=== PATIENT | male | born 1955 | race Asian ===

== ENCOUNTER 2018-05-15 13:48 | Inpatient (IN) | payer OTHER ==
[~2018-05-15] VITALS: Ht 170.2 cm; Wt 78.5 kg
[2018-05-15] MEDS ORDERED: ASPIRIN 81 MG CHEWABLE TABLET PO ONE (15:15)
[2018-05-15 15:44] LABS: BASOPHILS % (AUTO) 0.9 % (0.0-2.0); EOSINOPHILS % (AUTO) 1.2 % (1.0-6.0); HEMATOCRIT 47.5 % (41-53); HEMOGLOBIN 15.6 g/dL (13.5-17.5); LYMPHOCYTES # (AUTO) 0.7 K/uL (1.0-4.8); LYMPHOCYTES % (AUTO) 9.7 % (22.0-44.0); MEAN CORPUSCULAR HGB CONC 32.9 G/dL (31.0-37.0); MEAN CORPUSCULAR VOLUME 88 fL (80-100); MONOCYTES # (AUTO) 0.3 K/uL (0.1-1.0); MONOCYTES % (AUTO) 4.9 % (2.0-9.0); NEUTROPHILS # (AUTO) 5.8 K/uL (1.8-7.7); NEUTROPHILS % (AUTO) 83.3 % (40.0-70.0); PLATELET COUNT (AUTO) 216 K/uL (150-450); RED BLOOD CELL COUNT(AUTO) 5.39 MIL/uL (4.50-5.90); RED CELL DISTRIBUTION WIDTH 13.7 % (11.5-14.5)
[2018-05-15 16:04] LABS: ANION GAP 12 mmol/L (8-16); CALCIUM, TOTAL 8.3 mg/dL (8.8-10.5); CARBON DIOXIDE 19 mmol/L (22-29); CHLORIDE 106 mmol/L (98-107); CREATININE 0.99 mg/dL (0.60-1.30); GLOMERULAR FILTR. RATE CALC > 60 mL/min (>60); GLUCOSE,RANDOM 126 mg/dL (70-110); POTASSIUM 4.3 mmol/L (3.5-5.1); SODIUM SERUM 137 mmol/L (136-145); UREA NITROGEN, BLOOD 22 mg/dL (7-18)
[2018-05-15 16:30] LABS: ALANINE AMINOTRANSFERASE 44 U/L (12-78); ALBUMIN 3.2 g/dL (3.4-5.0); ALKALINE PHOSPHATASE 100 U/L (46-116); ASPARTATE AMINOTRANSFERASE 41 U/L (15-37); CREATINE KINASE, TOTAL ONLY 122 U/L (39-308)
[2018-05-15] MEDS ORDERED: NITROGLYCERIN 2% (1 GM=INCH) PACKET TP ONE (17:30)
[2018-05-15] MEDS ORDERED: HEPARIN SODIUM 25000 UNITS/D5W 250 ML IV PRN (17:53)
[2018-05-15 17:59] LABS: B-TYPE NATRIURETIC PEPTIDE 2520 pg/mL (0-100)
[2018-05-15] MEDS ORDERED: 0.9% SODIUM CHLORIDE 10 ML SYRINGE IVP PRN (18:00)
[2018-05-15] MEDS ORDERED: HEPARIN SODIUM,PORCINE 5,000 UNITS/ML VIAL IVP ONE ×2 (18:00→18:15)
[2018-05-15] MEDS ORDERED: HEPARIN SODIUM,PORCINE 5,000 UNITS/ML VIAL IVP PRN ×2 (18:00)
[2018-05-15] MEDS ORDERED: ONDANSETRON HCL 4 MG/2 ML VIAL IVP PRN (18:00)
[2018-05-15] MEDS ORDERED: ACETAMINOPHEN 325 MG TABLET PO PRN (18:00)
[2018-05-15 18:25] LABS: INR 1.2 (0.9-1.1); PROTHROMBIN TIME 12.8 SEC (9.4-11.6)
[2018-05-15 19:08] VITALS: BP 132/92
[2018-05-15 19:54] VITALS: BP 141/97
[2018-05-15] MEDS: FUROSEMIDE 20 MG/2 ML VIAL IVP SCH (21:18)
[2018-05-15 23:21] LABS: APPEARANCE,URINE CLEAR (CLEAR); BILIRUBIN,URINE NEGATIVE (NEGATIVE); GLUCOSE, URINE (UA) 100 mg/dL (NEGATIVE); KETONES,URINE NEGATIVE (NEGATIVE); LEUKOCYTE ESTERASE ,URINE NEGATIVE (NEGATIVE); NITRATE,URINE NEGATIVE (NEGATIVE); OCCULT BLOOD,URINE NEGATIVE (NEGATIVE); PH,URINE 5.5 (5.0-8.0); PROTEIN,URINE NEGATIVE (NEGATIVE)
[2018-05-15 23:26] LABS: AMPHET/METH SCREEN,URINE POSITIVE (NEGATIVE); BARBITURATE SCREEN, URINE NEGATIVE (NEGATIVE); BENZODIAZEPINES SCREEN,URINE NEGATIVE (NEGATIVE); CANNABINOID SCREEN,URINE NEGATIVE (NEGATIVE); COCAINE SCREEN,URINE NEGATIVE (NEGATIVE); METHADONE SCREEN, URINE NEGATIVE (NEGATIVE); OPIATE SCREEN,URINE NEGATIVE (NEGATIVE); PHENCYCLIDINE SCREEN,URINE NEGATIVE (NEGATIVE)
[2018-05-15 23:31] LABS: RBC,URINE None Seen /HPF (0-2); WBC,URINE 0-2 /HPF (0-5)
[2018-05-15 23:32] LABS: BACTERIA,URINE None Seen /HPF (None Seen); SQUAMOUS EPITHELIAL CELL,UR Rare /LPF (None Seen)
[2018-05-16] VITALS (8 sets, daily range): BP systolic 122–147; BP diastolic 70–98
[2018-05-16 03:22] LABS: BASOPHILS % (AUTO) 1.2 % (0.0-2.0); EOSINOPHILS % (AUTO) 3.8 % (1.0-6.0); HEMATOCRIT 48.4 % (41-53); HEMOGLOBIN 16.1 g/dL (13.5-17.5); LYMPHOCYTES # (AUTO) 1.8 K/uL (1.0-4.8); LYMPHOCYTES % (AUTO) 19.4 % (22.0-44.0); MEAN CORPUSCULAR HEMOGLOBIN 29.8 pg (26.0-34.0); MEAN CORPUSCULAR HGB CONC 33.2 G/dL (31.0-37.0); MEAN CORPUSCULAR VOLUME 90 fL (80-100); MONOCYTES # (AUTO) 0.9 K/uL (0.1-1.0); MONOCYTES % (AUTO) 10.3 % (2.0-9.0); NEUTROPHILS % (AUTO) 65.3 % (40.0-70.0); PLATELET COUNT (AUTO) 222 K/uL (150-450); RED CELL DISTRIBUTION WIDTH 13.7 % (11.5-14.5)
[2018-05-16 03:30] LABS: CALCIUM, TOTAL 8.4 mg/dL (8.8-10.5); CREATININE 1.24 mg/dL (0.60-1.30); POTASSIUM 4.3 mmol/L (3.5-5.1)
[2018-05-16] MEDS: FUROSEMIDE 20 MG/2 ML VIAL IVP SCH ×2 (08:25→20:23)
[2018-05-16] MEDS ORDERED: ALBUTEROL SULFATE 2.5 MG/0.5 ML NEB SOLUTION NEB PRN (10:15)
[2018-05-16] MEDS ORDERED: MAGNESIUM HYDROXIDE SUSPENSION 30 ML UDCUP PO PRN (10:15)
[2018-05-16] MEDS ORDERED: ACETAMINOPHEN 325 MG TABLET PO PRN (10:15)
[2018-05-16] MEDS: LISINOPRIL 10 MG TABLET PO SCH (11:03)
[2018-05-16] MEDS: ASPIRIN 81 MG CHEWABLE TABLET PO SCH (11:03)
[2018-05-16] MEDS: HEPARIN SODIUM,PORCINE 5,000 UNITS/ML VIAL SQ SCH ×2 (16:02→23:55)
[2018-05-16] MEDS: DOCUSATE SODIUM 100 MG CAPSULE PO SCH (20:23)
[2018-05-16] MEDS: CARVEDILOL 3.125 MG TABLET PO SCH (20:23)
[2018-05-17 04:30] VITALS: BP 118/85
[2018-05-17 06:17] LABS: EOSINOPHILS % (AUTO) 7.7 % (1.0-6.0); HEMOGLOBIN 15.4 g/dL (13.5-17.5); LYMPHOCYTES # (AUTO) 1.4 K/uL (1.0-4.8); LYMPHOCYTES % (AUTO) 15.5 % (22.0-44.0); MEAN CORPUSCULAR HEMOGLOBIN 29.7 pg (26.0-34.0); MEAN CORPUSCULAR HGB CONC 33.6 G/dL (31.0-37.0); MEAN CORPUSCULAR VOLUME 89 fL (80-100); MONOCYTES # (AUTO) 0.7 K/uL (0.1-1.0); MONOCYTES % (AUTO) 7.6 % (2.0-9.0); NEUTROPHILS # (AUTO) 6.1 K/uL (1.8-7.7); NEUTROPHILS % (AUTO) 68.2 % (40.0-70.0); PLATELET COUNT (AUTO) 215 K/uL (150-450); RED CELL DISTRIBUTION WIDTH 13.7 % (11.5-14.5)
[2018-05-17 06:41] LABS: ALBUMIN 2.9 g/dL (3.4-5.0); BILIRUBIN,TOTAL 1.7 mg/dL (0.1-1.0); CALCIUM, TOTAL 8.7 mg/dL (8.8-10.5); CREATININE 1.41 mg/dL (0.60-1.30); MAGNESIUM 2.1 mg/dL (1.80-2.40); POTASSIUM 4.1 mmol/L (3.5-5.1); TOTAL PROTEIN, SERUM 6.4 g/dL (6.4-8.2)
[2018-05-17] MEDS: HEPARIN SODIUM,PORCINE 5,000 UNITS/ML VIAL SQ SCH ×2 (08:00→09:45)
[2018-05-17] MEDS: FUROSEMIDE 20 MG/2 ML VIAL IVP SCH (08:15)
[2018-05-17] MEDS: CARVEDILOL 3.125 MG TABLET PO SCH (08:16)
[2018-05-17] MEDS: LISINOPRIL 10 MG TABLET PO SCH (08:27)
[2018-05-17] MEDS: DOCUSATE SODIUM 100 MG CAPSULE PO SCH (08:28)
[2018-05-17] MEDS: ASPIRIN 81 MG CHEWABLE TABLET PO SCH ×2 (08:28→09:45)
[2018-05-17] MEDS ORDERED: PANTOPRAZOLE SODIUM 40 MG DR TABLET PO SCH (09:00)
[2018-05-17 09:01] VITALS: BP 110/80
[2018-05-17 12:38] VITALS: BP 116/82
[2018-05-17] MEDS ORDERED: FURO20 PO (12:47)
[2018-05-17] MEDS ORDERED: CARV3 PO (12:47)
[2018-05-17] MEDS ORDERED: CARVEDILOL 6.25 MG TABLET PO SCH (21:00)
== END 2018-05-17 13:10 | disposition home or self-care (01) | DRG 190 ==
LOC: EMS 13:49 → 5N 18:17
PROVIDERS: ADMIT Internal Medicine; ATTEND Internal Medicine
DX: I21.4 Non-ST elevation (NSTEMI) myocardial infarction (principal); I50.23 Acute on chronic systolic (congestive) heart failure; E44.0 Moderate protein-calorie malnutrition; J44.9 Chronic obstructive pulmonary disease, unspecified; F15.10 Other stimulant abuse, uncomplicated; F17.200 Nicotine dependence, unspecified, uncomplicated; I34.0 Nonrheumatic mitral (valve) insufficiency; I45.81 Long QT syndrome; R73.9 Hyperglycemia, unspecified; Z68.27 Body mass index [BMI] 27.0-27.9, adult
CPT/HCPCS: 82271; 83735; 93005; 93306; 99291; G0378; J1644; J1940

== ENCOUNTER → 2021-02-22 | Outpatient (CLI) | payer MEDICARE, OTHER ==
[~2021-02-22] VITALS: Ht 167.6 cm; Wt 79.6 kg
[~2021-02-22] MED LIST: ATOR40TA28 PO; CARV3 PO; FURO20 PO; LISI-893 PO; METO25XL PO
[2021-02-22 13:39] VITALS: BP 105/61
== END | disposition home or self-care (01) ==
LOC: SRCNTR 10:27 → EDSTATUS 11:00
PROVIDERS: ATTEND Internal Medicine Clinical Cardiac Electrophysiology
DX: I67.1 Cerebral aneurysm, nonruptured (principal)
CPT/HCPCS: 93005; G0463

== ENCOUNTER → 2021-03-01 | Outpatient (CLI) | payer MEDICARE, OTHER ==
[~2021-03-01] VITALS: Ht 175.3 cm; Wt 80.0 kg
[2021-03-01 14:13] VITALS: BP 104/78
== END | disposition home or self-care (01) ==
LOC: SRCNTR 10:48
PROVIDERS: ATTEND Internal Medicine Clinical Cardiac Electrophysiology
DX: Z00.00 Encounter for general adult medical examination without abnormal findings (principal)
CPT/HCPCS: G0463

== ENCOUNTER → 2021-03-02 | Outpatient (CLI) | payer MEDICARE, OTHER ==
[~2021-03-02] VITALS: Ht 167.6 cm; Wt 78.7 kg
[2021-03-02 11:47] VITALS: BP 99/69
== END | disposition home or self-care (01) ==
LOC: SRCNTR 11:01
PROVIDERS: ATTEND Internal Medicine Cardiovascular Disease
DX: I50.9 Heart failure, unspecified (principal); I42.8 Other cardiomyopathies; Z87.891 Personal history of nicotine dependence; F19.10 Other psychoactive substance abuse, uncomplicated
CPT/HCPCS: G0463; Z7500

== ENCOUNTER → 2021-03-04 | Outpatient (CLI) | payer MEDICARE, OTHER ==
[~2021-03-04] MED LIST changes: -CARV3 PO
== END | disposition home or self-care (01) ==
LOC: RADPV 09:06
PROVIDERS: ATTEND Internal Medicine Cardiovascular Disease
DX: I08.3 Combined rheumatic disorders of mitral, aortic and tricuspid valves (principal); I50.20 Unspecified systolic (congestive) heart failure
CPT/HCPCS: 93306

== ENCOUNTER → 2021-03-08 | Outpatient (CLI) | payer MEDICARE, OTHER ==
[~2021-03-08] VITALS: Ht 167.6 cm; Wt 77.4 kg
[2021-03-08 10:16] VITALS: BP 102/70
== END | disposition home or self-care (01) ==
LOC: SRCNTR 09:30
PROVIDERS: ATTEND Internal Medicine Clinical Cardiac Electrophysiology
DX: I11.0 Hypertensive heart disease with heart failure (principal); I50.9 Heart failure, unspecified; I42.0 Dilated cardiomyopathy; E78.5 Hyperlipidemia, unspecified; J44.9 Chronic obstructive pulmonary disease, unspecified
CPT/HCPCS: G0463

== ENCOUNTER → 2021-04-05 | Outpatient (CLI) | payer MEDICARE, OTHER | END | disposition home or self-care (01) | LOC: RADPV 10:09 | PROVIDERS: ATTEND Internal Medicine Clinical Cardiac Electrophysiology | DX: I08.8 Other rheumatic multiple valve diseases (principal); I50.9 Heart failure, unspecified | CPT/HCPCS: 93308 ==

== ENCOUNTER → 2021-06-01 | Outpatient (CLI) | payer MEDICARE, OTHER ==
[~2021-06-01] VITALS: Ht 165.1 cm; Wt 77.0 kg
[2021-06-01 11:02] VITALS: BP 113/73
== END | disposition home or self-care (01) ==
LOC: SRCNTR 10:41
PROVIDERS: ATTEND Internal Medicine Cardiovascular Disease
DX: I50.9 Heart failure, unspecified (principal); I42.8 Other cardiomyopathies; F19.10 Other psychoactive substance abuse, uncomplicated
CPT/HCPCS: G0463; Z7500